=== PATIENT | male | born 1935 | race Caucasian/White ===

== ENCOUNTER 2019-09-24 13:06 | Outpatient (CLI) | payer MEDICARE, SELFPAY ==
[2019-09-24 13:53] LABS: Basophils # 0.1 10^3/uL (0.0-0.1); Basophils % 1.3 %; Eosinophils # 0.3 10^3/uL (0.0-0.8); Eosinophils % 4.4 %; Hematocrit 38.1 % (42.0-52.0); Hemoglobin 12.8 g/dL (11.7-16.6); Lymphocytes # 1.3 10^3/uL (0.8-4.8); Lymphocytes % 18.7 %; Mean Corpuscular HGB Conc 33.6 g/dL (30.0-36.0); Mean Corpuscular Hemoglobin 31.6 pg (28.0-34.0); Mean Corpuscular Volume 94.1 fL (80-94); Mean Platelet Volume 11.5 fL (7.4-10.4); Monocytes # 0.9 10^3/uL (0.2-0.9); Monocytes % 13.3 %; Neutrophils # 4.3 10^3/uL (1.8-7.7); Nucleated Red Blood Cells % 0 %; Platelet Count 154 10^3/cmm (130-400); Red Blood Count 4.05 10^6/uL (4.1-5.3); Red Cell Distribution Width 12.2 % (12.1-15.1); White Blood Count 6.9 10^3/uL (4.0-10.0)
[2019-09-24 13:58] LABS: Alanine Aminotransferase 18 U/L (0-41); Albumin Level 4.1 g/dL (3.5-5.2); Alkaline Phosphatase 55 IU/L (40-130); Anion Gap 13.4 (5-19); Aspartate Amino Transferase 23 U/L (0-40); Blood Urea Nitrogen 13 mg/dL (8-23); Carbon Dioxide 27 mmol/L (22-29); Chloride 101 mmol/L (98-107); Globulin 2.4 g/dL (1.3-4.6); Glucose 153 mg/dL (65-115); Osmolality Calculated 283 mOsm/kg (285-295); Potassium 4.4 mmol/L (3.5-5.1); Sodium 137 mmol/L (136-145); Total Bilirubin 0.5 mg/dL (0.15-1.2); Total Protein 6.5 g/dL (6.6-8.7)
[2019-09-24 17:47] LABS: Estmated Average Glucose 151; Hemoglobin A1C 6.9 % (4.0-6.0)
[2019-09-24 20:32] LABS: Carcinoembryonic Antigen 1.6 ng/mL (0.0-4.7)
--- NOTE | 2019-09-27 21:14 | ONC FU_ITS ---
Dr. Gray Patient Follow-Up Note Patient: David Mcclure Unit #: [id number]: 1935 Dicatated By: Dc Gray M.D.Date of Visit:September 24, 2019 Onc Med Follow-up/Prog Note Chief Complaint: Rectal cancer. History of Present Illness: This is an 84 year-old man with locally advanced rectal cancer, post treatment stage IIA (ypT2, ypN0, M0). The cancer was initially diagnosed in February 2007. He was given preoperative chemoradiation followed by low anterior resection with ileostomy in October 2007. His management was complicated by the fact that he also had significant coronary artery disease and he did require coronary artery bypass surgery prior to his colon resection. Pathology from his resection did show residual tumor, which was a moderately differentiated adenocarcinoma measuring 2 x 1.5 cm. It was invading into but not through the muscularis propria. There was no involvement in 8 lymph nodes. His post-treatment stage was IIA (ypT2, ypN0, M0). He had very marginal performance status following the surgery, and I did not attempt postoperative adjuvant chemotherapy. During followup, he has had no documented recurrence of his rectal cancer. He did attempt takedown of his ileostomy with reanastomosis of his colon, but he had very poor function and he ultimately did opt to have the ostomy replaced. His medical illnesses include hypertension, hyperlipidemia, type 2 diabetes, chronic kidney disease, coronary artery disease, COPD, and GERD. He is known to have a 5 cm infrarenal abdominal aortic aneurysm, and he has chronic back pain. In addition, he has a mild chronic anemia. He has a long history of smoking, in the range of 1 to 1 1/2 packs of cigarettes daily. He has had no interest in quitting. He is seen for a scheduled visit. He has been feeling pretty good generally. He does have limited activity tolerance, but he is able to do light work, and he has continued to live independently. ECOG score is 1. His appetite has been good. His weight fluctuates up and down. Overall it has remained stable. He has not had fever. He has a little sweating at night. He has shortness of breath, and he uses an inhaler as needed. He does not have much cough. He does not complain of chest pain. He sometimes has indigestion. His bowel movements are sometimes too frequent, but he does not have actual diarrhea. He has not been aware of any blood in the stool. He does have difficulty voiding, which he describes as trickle, trickle, trickle . He sometimes has urgency with urination. He has generalized aches and pains and he has chronic lower back pain. It is managed adequately with his medication. He has some difficulty with balance, which is not new. He has no focal neurologic symptoms. Medications: Aspirin 1 (81 mg) Tablet Oral daily, Carvedilol 1 (12.5 mg) Tablet Oral daily, Flomax 1 (0.4 mg) Capsule Oral daily, Morphine Sulfate 1 Tablet (of 30 mg) Oral 5x/d, Multivitamins 2 Tablet Oral daily, Simvastatin 1 Tablet (of 10 mg) Oral daily, Super B Complex Tablet Oral daily, TraZODone HCl 1 (50 mg) Tablet Oral at bedtime PRN, Vitamin D 1 Capsule Oral daily Allergies: PENICILLIN Review of Systems: Constitutional - His energy is okay. He does light work at home, and he continues to live independently. His appetite is okay. His weight fluctuates up and down. Overall it has remained stable. He has had no fever. He has a little sweating at night. ECOG score is 1, ENMT - No sinus congestion/drainage. No mouth sores. No sore throat or difficulty swallowing, Hematologic/Lymphatic - He bruises easily, Respiratory - He has shortness of breath. He uses an inhaler as needed. He does not have much cough. No pleuritic pain or hemoptysis. He is smoking around a pack a day, Cardiovascular - No angina pain. No palpitations, Gastrointestinal - No nausea or vomiting. He does have some indigestion. No constipation. He says his bowel movements are sometimes too frequent, but he does not have actual diarrhea. No blood in the stool or black stools, Genitourinary (M) - He describes his voiding as trickle, trickle, and trickle . He sometimes has urgency with urination, Musculoskeletal - He has generalized aches and pains, and he has chronic pain in his lower back, Integumentary - No skin complications, Neurologic - No headache. He has some difficulty with balance. No numbness/paresthesias or other focal neurologic symptoms, Psychiatric - No anxiety or depression. He sleeps well with Trazodone. Vital Signs: Performed on September 24, 2019 14:22 Height - 67.00 in Weight - 131.2 lbs (HIGH) BSA - 1.69 sq.m BMI - 20.55 Temperature - 99.0 F (HIGH) Pulse - 70 /min Respiration - 22 /min BP - 171/75 mm(hg) (HIGH) O2 Sat - 95 % (LOW) Pain - 0 Physical Examination: Constitutional - He looks pretty good generally, Eyes - Sclerae nonicteric. Conjunctivae clear, ENMT - No lesions noted in the oral cavity, Hematologic/Lymphatic - No cervical, clavicular, or axillary adenopathy, Respiratory - Lungs sound clear with diminished air movement bilaterally, Cardiovascular - Heart rhythm is regular. There is a II/ systolic murmur. There is no gallop or rub noted, Abdomen - Soft. He has a herbert-stomal hernia. Liver and spleen are not enlarged. There is no abdominal mass or ascites noted and there is no inguinal adenopathy, Extremities - Mild lower extremity edema, Neurologic - No focal neurologic deficits noted. Lab/Imaging: Test performed on September 24, 2019 13:20 Sodium 137 mmol/L Potassium 4.4 mmol/L Chloride 101 mmol/L CO2 27 mmol/L Anion Gap 13.4 BUN 13 mg/dL Creatinine 0.8 mg/dL Cr Clearance (Est) 59.93 mL/min Glucose 153 mg/dL Calcium 9.0 mg/dL Protein, Total 6.5 g/dL Albumin 4.1 g/dL Globulin 2.4 g/dL Bilirubin, Total 0.5 mg/dL ALT (SGPT) 18 U/L AST (SGOT) 23 U/L Alkaline Phosphatase 55 IU/L Hemoglobin A1C % 6.9 % WBC 6.9 10 3/uL RBC 4.05 10 6/uL HGB 12.8 g/dL HCT 38.1 % MCV 94.1 fL MCH 31.6 pg MCHC 33.6 g/dL RDW 12.2 % Platelet Count 154 10 3/cmm MPV 11.5 fL Neutrophils 4.3 10 3/uL Lymphocytes 1.3 10 3/uL Monocytes 0.9 10 3/uL Eosinophils 0.3 10 3/uL Basophils 0.1 10 3/uL Neutrophil % 62.0 % Lymphocyte % 18.7 % Monocyte % 13.3 % Eosinophil % 4.4 % Basophils % 1.3 % CEA 1.6 ng/mL Impression: 1. Patient with locally advanced adenocarcinoma of the rectum. He underwent neoadjuvant chemoradiation followed by low anterior resection in October 2007. His posttreatment staging was ypT2, ypN0. I did not attempt any postoperative adjuvant chemotherapy, as his performance status at that point was very marginal. 2. He had initially undergone a bowel reanastomosis, but he later opted to have the ostomy replaced due to poor bowel control. He has remained on observation/expectant management for the rectal cancer. His other medical illnesses include: 3. Hypertension. 4. Hyperlipidemia. 5. Type II diabetes. 6. Coronary artery disease. 7. COPD. 8. He has a known infrarenal abdominal aortic aneurysm. 9. He has chronic back pain. 10. He has chronic pain in the lower extremities which appears to be consistent with peripheral neuropathy. 11. He has nicotine dependence (cigarettes). During follow-up he has had ongoing problems with his chronic back pain, but it has been managed adequately on a stable dosage of immediate release morphine. He had been losing weight, but that had subsequently stabilized. Overall, he has remained stable clinically with no evidence of recurrence of the rectal cancer. Plan: He remains on observation/expectant management for the rectal cancer. His medications will remain the same. I will see him again in 6 months, or sooner as needed. Signed By: Dc Gray M.D. <<Signature on File>>
== END 2019-09-24 13:07 | disposition home or self-care (01) ==
LOC: ONCMED 13:10
PROVIDERS: PCP Internal Medicine; Visit Provider Internal Medicine Medical Oncology
DX: Z08 Encounter for follow-up examination after completed treatment for malignant neoplasm (principal); Z85.048 Personal history of other malignant neoplasm of rectum, rectosigmoid junction, and anus; I10 Essential (primary) hypertension; E78.5 Hyperlipidemia, unspecified; E11.9 Type 2 diabetes mellitus without complications; I25.10 Atherosclerotic heart disease of native coronary artery without angina pectoris; J44.9 Chronic obstructive pulmonary disease, unspecified; G89.29 Other chronic pain; M79.605 Pain in left leg; M79.604 Pain in right leg; M54.9 Dorsalgia, unspecified; F17.210 Nicotine dependence, cigarettes, uncomplicated; Z79.891 Long term (current) use of opiate analgesic; Z90.49 Acquired absence of other specified parts of digestive tract
CPT/HCPCS: 36415; 80053; 82378; 83036; 85025; G0463

== ENCOUNTER 2019-12-26 10:28 | Emergency (ER) | payer MEDICARE, SELFPAY ==
[2019-12-26 10:36] VITALS: BP 138/109; PULSE 70; RESP 16; TEMP 36.3; O2SAT 91; BMI 20.3
[2019-12-26 11:26] VITALS: PULSE 62; O2SAT 93
--- NOTE | 2019-12-26 11:30 | USCV_ITS ---
Ren David Age: 84 Gender: M : 1935 Exam Date: 12/26/2019 12:26 Ordering Phys: Young Mckeon DO Technologist: Aleta Vines [place] [facility] [place]: Swelling HISTORY: Right lower extremity swelling. PROCEDURES: Comparison: 12-06-11. Venous duplex imaging was performed in only the right lower extremity. The following venous structures were evaluated: common femoral vein, profunda vein, proximal portion of the greater saphenous vein, superficial femoral vein, and the popliteal vein. In addition, the posterior tibial and peroneal trunk were evaluated. Serial compression, augmentation maneuvers, and spectral Doppler flow evaluation were performed. FINDINGS: No evidence of DVT seen in any vessel visualized at this time. Calf edema noted. CONCLUSIONS No DVT right lower extremity. Nonspecific subcutaneous edema seen in the lower leg as well as varicose veins demonstrated behind the knee. Charlie Tinsley (Electronically Signed) Final Date: 26 December 2019 13:22 S
--- NOTE | 2019-12-26 11:32 | ED_ITS ---
HPI - Extremity Problem General: Chief complaint: Extremity Problem,Nontraumatic Stated complaint: swelling/rash right leg Time Seen by Provider: 12/26/19 11:11 History of Present Illness: HPI Narrative: 84-year-old male comes in complaining of right lower leg edema and swelling for the last 10 days occasionally has had some drainage from it is painful to the touch he is not had any popliteal or inguinal lymphadenopathy on that side. He is not had any fever sweats or chills denies any chest pain or shortness of breath. MD Complaint: extremity pain and extremity swelling Onset (ago): day(s) (10) Pain Consistency: constant Location: right and lower extremity Quality: aching Radiation: none Relieving factors: immobilization, elevation and rest Associated symptoms: Reports myalgias and short of breath; Deny arthralgias, chest pain, fever(s) or rash Context: immobilization, recent surgery/procedure and history of DVT Review of Systems Const: Denies: fever(s) ENMT: Denies: throat pain, ear or mastoid pain, nasal discharge or nasal congestion Card: Denies: chest pain Resp: Denies: dyspnea, productive cough or non-productive cough GI: Denies: abdominal pain, nausea, vomiting, hematemesis, coffee ground emesis, diarrhea, constipation, bloating, hematochezia or melena : Denies: flank pain, dysuria, urinary frequency or urinary urgency Skin/Breast: Denies: rash or pruritus PFSH ED PFSH: Medical History (Updated 12/26/19 @ 13:04 by Young Mckeon DO) Colon cancer Colostomy in place Coronary artery disease Coronary atherosclerosis of bypass graft Surgical History (Updated 12/26/19 @ 11:53 by Young Mckeon DO) History of colon resection Social History (Updated 12/26/19 @ 10:41 by Jorge Carrera RN) Smoking and tobacco status: heavy tobacco smoker Alcohol intake: never Substance/Drug Use: never Physical Exam Const: COMMON NORMALS: no acute distress GENERAL APPEARANCE: cooperative and comfortable ORIENTATION/CONSCIOUSNESS: Yes awake, Yes oriented to person, Yes oriented to place and Yes oriented to time HENMT: COMMON NORMALS: normocephalic and atraumatic HEAD & SCALP: normocephalic and atraumatic Eye: COMMON NORMALS: Equal, round and reactive pupils present, EOMs intact bilaterally, conjunctivae normal and no scleral icterus CONJUNCTIVA: Yes conjunctivae normal PUPIL: Yes Equal, round and reactive pupils present Neck/C-Spine: COMMON NORMALS: full ROM, no lymphadenopathy, supple and no JVD Lymph: LYMPHATIC: no lymphadenopathy noted and no lymphedema noted Resp: COMMON NORMALS: normal respiratory effort, No retractions, No use of accessory muscles and clear to auscultation bilaterally AUSCULTATION: clear to auscultation bilaterally Cardio: COMMON NORMALS: no JVD, regular rate, regular rhythm and No murmurs present (Cardio) RATE: regular rate RHYTHM: regular rhythm GI: COMMON NORMALS: Soft to palpation and No hepatosplenomegaly present AUSCULTATION: Yes normoactive bowel sounds PALPATION: Yes Soft to palpation, No Tenderness to palpation present (GI), No Guarding due to palpation present ( GI) and Yes No hepatosplenomegaly present OTHER: Colostomy in place in the left lower quadrant no signs of infection Extremity: NARRATIVE EXTREMITY EXAM: Right lower extremity mildly swollen with some venous stasis skin breakdown there is some serous drainage erythematous and tender to the touch Neuro: SENSORIUM/ORIENTATION: Yes oriented to person, Yes oriented to place and Yes oriented to time Skin: COMMON NORMALS: no rashes or lesions noted GENERAL SKIN EXAM: no rashes or lesions noted Course Vital Signs: Vital signs: Vital Signs Temperature 97.3 F L 12/26/19 10:36 Pulse Rate 62 12/26/19 14:06 Respiratory Rate 18 12/26/19 14:06 Blood Pressure 169/82 12/26/19 14:06 Pulse Oximetry 93 12/26/19 14:06 MDM - Extremity (Nontraumatic) MDM Narrative: Medical decision making narrative: Redress wound. We will send her him home with Bactrim DS 1 p.o. twice daily. Only gave him enough for 5 days by that time he needs to see his regular doctor back again and needs to have his kidney function rechecked and have the leg reevaluated if he has worsening symptoms he needs to return to the emergency room Lab Data: Labs: Lab Results 12/26/19 12/26/19 Range/Units 11:40 11:40 WBC 6.5 (4.0-10.0) 10^3/ uL RBC 4.05 L (4.1-5.3) 10^6/u L Hgb 12.4 (11.7-16.6) g/dL Hct 38.0 L (42.0-52.0) % MCV 93.8 (80-94) fL MCH 30.6 (28.0-34.0) pg MCHC 32.6 (30.0-36.0) g/dL RDW 11.9 L (12.1-15.1) % Plt Count 185 (130-400) 10^3/c mm MPV 11.0 H (7.4-10.4) fL Neut % (Auto) 69.0 % Lymph % (Auto) 15.1 % Rich % (Auto) 10.3 % Eos % (Auto) 4.5 % Baso % (Auto) 0.8 % Neut # (Auto) 4.50 (1.8-7.7) 10^3/u L Lymph # (Auto) 1.0 (0.8-4.8) 10^3/u L Rich # (Auto) 0.7 (0.2-0.9) 10^3/u L Eos # (Auto) 0.3 (0.0-0.8) 10^3/u L Baso # (Auto) 0.1 (0.0-0.1) 10^3/u L Nucleated RBC % (a uto) 0 % Nucleated RBCs # 0.0 /100WBC Sodium 139 (136-145) mmol/L Potassium 4.4 (3.5-5.1) mmol/L Chloride 105 (98-107) mmol/L Carbon Dioxide 28 (22-29) mmol/L Anion Gap 10.4 (5-19) BUN 10 (8-23) mg/dL Creatinine 0.7 (0.7-1.2) mg/dL GFR Calculation Not Reportable Glucose 144 H (65-115) mg/dL Calculated Osmolal ity 287 (285-295) mOsm/k g Calcium 8.8 (8.5-10.5) mg/dL Total Bilirubin 0.5 (0.15-1.2) mg/dL AST 25 (0-40) U/L ALT 13 (0-41) U/L Alkaline Phosphata se 61 (40-130) IU/L Total Protein 6.2 L (6.6-8.7) g/dL Albumin 3.6 (3.5-5.2) g/dL Globulin 2.6 (1.3-4.6) g/dL Discharge Plan Discharge Patient Disposition: Home Clinical Impression: Cellulitis Condition: Stable Prescriptions: New Bactrim DS 800-160 mg tablet 1 tab PO BID 5 Days Qty: 10 RF: 0 No Action carvedilol 6.25 mg tablet 6.25 mg PO .2 TABS AM, 1 TAB PM Qty: 90 RF: 5 simvastatin 10 mg tablet 10 mg PO DAILY 90 Days Qty: 90 RF: 3 Discharge Orders: Discharge Order (Routine); Ordered 12/26/19 Ordered By: Young Mckeon Referrals: Dc White DO [Primary Care Provider] - Discharge Diet: Usual diet Discharge Activity: Limit activity as instructed Activity Restrictions/Additional Instructions: Follow-up with your primary care doctor within 5 days to reevaluate the need for further antibiotics and to recheck your kidney function. If you worsen prior to then return to the emergency room. 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
[2019-12-26 11:56] LABS: Basophils # 0.1 10^3/uL (0.0-0.1); Basophils % 0.8 %; Eosinophils # 0.3 10^3/uL (0.0-0.8); Eosinophils % 4.5 %; Hemoglobin 12.4 g/dL (11.7-16.6); Lymphocytes % 15.1 %; Mean Corpuscular HGB Conc 32.6 g/dL (30.0-36.0); Mean Corpuscular Hemoglobin 30.6 pg (28.0-34.0); Mean Corpuscular Volume 93.8 fL (80-94); Monocytes # 0.7 10^3/uL (0.2-0.9); Monocytes % 10.3 %; Nucleated Red Blood Cells % 0 %; Platelet Count 185 10^3/cmm (130-400); Red Blood Count 4.05 10^6/uL (4.1-5.3); Red Cell Distribution Width 11.9 % (12.1-15.1); White Blood Count 6.5 10^3/uL (4.0-10.0)
[2019-12-26 12:13] LABS: Alanine Aminotransferase 13 U/L (0-41); Albumin Level 3.6 g/dL (3.5-5.2); Alkaline Phosphatase 61 IU/L (40-130); Anion Gap 10.4 (5-19); Aspartate Amino Transferase 25 U/L (0-40); Blood Urea Nitrogen 10 mg/dL (8-23); Calcium 8.8 mg/dL (8.5-10.5); Carbon Dioxide 28 mmol/L (22-29); Chloride 105 mmol/L (98-107); Globulin 2.6 g/dL (1.3-4.6); Glucose 144 mg/dL (65-115); Osmolality Calculated 287 mOsm/kg (285-295); Potassium 4.4 mmol/L (3.5-5.1); Sodium 139 mmol/L (136-145); Total Bilirubin 0.5 mg/dL (0.15-1.2); Total Protein 6.2 g/dL (6.6-8.7)
[2019-12-26 14:06] VITALS: BP 169/82; PULSE 62; RESP 18; O2SAT 93
== END 2019-12-26 14:01 | disposition home or self-care (01) ==
PROVIDERS: Emergency Provider Family Medicine; PCP Internal Medicine
DX: L03.115 Cellulitis of right lower limb (principal); Z85.038 Personal history of other malignant neoplasm of large intestine; I25.10 Atherosclerotic heart disease of native coronary artery without angina pectoris; F17.210 Nicotine dependence, cigarettes, uncomplicated; M79.89 Other specified soft tissue disorders
CPT/HCPCS: 12345; 36415; 80053; 85025; 87040; 93971; 99281; 99283

== ENCOUNTER 2020-04-12 12:52 | Outpatient (CLI) | payer MEDICARE, SELFPAY ==
[2020-04-12 13:37] LABS: Basophils # 0.1 10^3/uL (0.0-0.1); Basophils % 1.3 %; Eosinophils # 0.3 10^3/uL (0.0-0.8); Eosinophils % 4.4 %; Hematocrit 35.9 % (42.0-52.0); Lymphocytes # 1.5 10^3/uL (0.8-4.8); Lymphocytes % 22.4 %; Mean Corpuscular HGB Conc 33.4 g/dL (30.0-36.0); Mean Corpuscular Hemoglobin 30.8 pg (28.0-34.0); Mean Corpuscular Volume 92.1 fL (80-94); Monocytes # 0.7 10^3/uL (0.2-0.9); Monocytes % 10.9 %; Neutrophils # 4.14 10^3/uL (1.8-7.7); Neutrophils % 60.9 %; Nucleated Red Blood Cells % 0 %; Platelet Count 199 10^3/cmm (130-400); Red Cell Distribution Width 11.9 % (12.1-15.1); White Blood Count 6.8 10^3/uL (4.0-10.0)
[2020-04-12 13:49] LABS: Estmated Average Glucose 123; Hemoglobin A1C 5.9 % (4.0-6.0)
[2020-04-12 14:35] LABS: Carcinoembryonic Antigen 1.7 ng/mL (0.0-4.7)
[2020-04-12 14:47] LABS: Alanine Aminotransferase 17 U/L (0-41); Albumin Level 3.6 g/dL (3.5-5.2); Alkaline Phosphatase 61 IU/L (40-130); Anion Gap 10.5 (5-19); Aspartate Amino Transferase 22 U/L (0-40); Blood Urea Nitrogen 10 mg/dL (8-23); Calcium 8.9 mg/dL (8.5-10.5); Carbon Dioxide 29 mmol/L (22-29); Chloride 104 mmol/L (98-107); Globulin 2.7 g/dL (1.3-4.6); Glucose 150 mg/dL (65-115); Osmolality Calculated 290 mOsm/kg (285-295); Potassium 4.5 mmol/L (3.5-5.1); Sodium 139 mmol/L (136-145); Total Bilirubin 0.3 mg/dL (0.15-1.2); Total Protein 6.3 g/dL (6.6-8.7)
--- NOTE | 2020-04-15 14:57 | ONC FU_ITS ---
Dr. Gray Patient Follow-Up Note Patient: David Mcclure Unit #: [id number]: 1935 Dicatated By: Dc Gray M.D.Date of Visit:Apr 12, 2020 Onc Med Follow-up/Prog Note Chief Complaint: Rectal cancer. History of Present Illness: This is an 84 year-old man with locally advanced rectal cancer, post treatment stage IIA (ypT2, ypN0, M0). The cancer was initially diagnosed in February 2007. He was given preoperative chemoradiation followed by low anterior resection with ileostomy in October 2007. His management was complicated by the fact that he also had significant coronary artery disease and he did require coronary artery bypass surgery prior to his colon resection. Pathology from his resection did show residual tumor, which was a moderately differentiated adenocarcinoma measuring 2 x 1.5 cm. It was invading into but not through the muscularis propria. There was no involvement in 8 lymph nodes. His post-treatment stage was IIA (ypT2, ypN0, M0). He had very marginal performance status following the surgery, and I did not attempt postoperative adjuvant chemotherapy. During followup, he has had no documented recurrence of his rectal cancer. He did attempt takedown of his ileostomy with reanastomosis of his colon, but he had very poor function and he ultimately did opt to have the ostomy replaced. His medical illnesses include hypertension, hyperlipidemia, type 2 diabetes, chronic kidney disease, coronary artery disease, COPD, and GERD. He is known to have a 5 cm infrarenal abdominal aortic aneurysm, and he has chronic back pain. In addition, he has a mild chronic anemia. He has a long history of smoking, in the range of 1 to 1 1/2 packs of cigarettes daily. He has had no interest in quitting. He is seen for a scheduled visit. He has been feeling pretty good, though he does get tired pretty easily. He is able to do light work. Appetite is fair. His weight is stable. He has not had fever. He occasionally has sweating at night. In December he was treated in the emergency room for cellulitis of the right leg. He had subsequently developed some skin ulcerations, but those are getting better. He has some shortness of breath, but his breathing is generally okay. He does not complain of cough. He is still smoking a pack of cigarettes daily. He has not had chest pain. He has no GI/ complaints other than frequent urination. He is having back pain and he also complains that his legs ache. His pain is adequately managed with his medication, at least to the point that he is functional. Lately has had some headaches and he also complains of having some dizziness. He has no focal neurologic symptoms. Medications: Aspirin 1 (81 mg) Tablet Oral daily, Carvedilol 1 (12.5 mg) Tablet Oral daily, Flomax 1 (0.4 mg) Capsule Oral daily, Gabapentin 1 Capsule (of 100 mg) Oral b.i.d., Morphine Sulfate 1 Tablet (of 30 mg) Oral 5x/d, Multivitamins 2 Tablet Oral daily, Simvastatin 1 Tablet (of 10 mg) Oral daily, Super B Complex Tablet Oral daily, TraZODone HCl 1 (50 mg) Tablet Oral at bedtime PRN, Vitamin D 1 Capsule Oral daily Allergies: PENICILLIN Review of Systems: Constitutional - He tires very easily, but he is able to do light work. Appetite is fair. His weight is stable. He has not had fever. He occasionally has night sweating. ECOG score is 1, ENMT - He has a little bit of sinus drainage. No mouth sores. No sore throat or difficulty swallowing, Hematologic/Lymphatic - No abnormal bruising or bleeding, Respiratory - He has some shortness of breath, but his breathing is generally okay. He does not have cough. He is still smoking 1 pack of cigarettes daily. No pleuritic pain or hemoptysis, Cardiovascular - No angina pain. No palpitations, Gastrointestinal - No nausea or vomiting. No heartburn or acid reflux. No diarrhea or constipation. No blood in the stool or black stools, Genitourinary (M) - No dysuria or hematuria. He has urinary frequency. No urgency or incontinence, Musculoskeletal - He has chronic pain in his back and lower extremities. It is managed adequately with his pain medication, at least to the point that he is functional, Integumentary - Had developed some skin ulcerations on his right leg, but they are getting better, Neurologic - Lately has had some headaches and he also has some dizziness. No numbness or tingling. No other focal neurologic symptoms, Psychiatric - No anxiety or depression. No insomnia. Vital Signs: Performed on Apr 12, 2020 14:36 Height - 67.00 in Weight - 133.2 lbs (HIGH) BSA - 1.70 sq.m BMI - 20.86 Temperature - 98.5 F Pulse - 63 /min Respiration - 24 /min BP - 160/77 mm(hg) (HIGH) O2 Sat - 98 % Pain - 5 Physical Examination: Constitutional - He looks pretty good generally, Eyes - Sclerae nonicteric. Conjunctivae clear, ENMT - No lesions noted in the oral cavity, Hematologic/Lymphatic - No cervical, clavicular, or axillary adenopathy, Respiratory - Lungs sound clear with diminished air movement bilaterally, Cardiovascular - Heart rhythm is regular. There is a II/ systolic murmur. There is no gallop or rub noted, Abdomen - Soft. He has a herbert-stomal hernia. Liver and spleen are not enlarged. There is no abdominal mass or ascites noted and there is no inguinal adenopathy, Extremities - There are venous stasis changes and there is mild lower extremity edema, Neurologic - No focal neurologic deficits noted. Lab/Imaging: Test performed on Apr 12, 2020 13:19 Sodium 139 mmol/L Potassium 4.5 mmol/L Chloride 104 mmol/L Est Avg Glucose (eAG) 123 mg/dL CO2 29 mmol/L Anion Gap 10.5 BUN 10 mg/dL Creatinine 0.8 mg/dL Cr Clearance (Est) 60.8400 mL/min Glucose 150 mg/dL Osmolality - Calculated 290 mOsm/kg Calcium 8.9 mg/dL Protein, Total 6.3 g/dL Albumin 3.6 g/dL Globulin 2.7 g/dL Bilirubin, Total 0.3 mg/dL ALT (SGPT) 17 U/L AST (SGOT) 22 U/L Alkaline Phosphatase 61 IU/L Hemoglobin A1C % 5.9 % WBC 6.8 10 3/uL RBC 3.90 10 6/uL HGB 12.0 g/dL HCT 35.9 % MCV 92.1 fL MCH 30.8 pg MCHC 33.4 g/dL RDW 11.9 % Platelet Count 199 10 3/cmm MPV 11.0 fL Neutrophils 4.14 10 3/uL Lymphocytes 1.5 10 3/uL Monocytes 0.7 10 3/uL Eosinophils 0.3 10 3/uL Basophils 0.1 10 3/uL Neutrophil % 60.9 % Lymphocyte % 22.4 % Monocyte % 10.9 % Eosinophil % 4.4 % Basophils % 1.3 % NRBC % 0 % CEA 1.7 ng/mL Impression: 1. Patient with locally advanced adenocarcinoma of the rectum. He underwent neoadjuvant chemoradiation followed by low anterior resection in October 2007. His posttreatment staging was ypT2, ypN0. I did not attempt any postoperative adjuvant chemotherapy, as his performance status at that point was very marginal. 2. He had initially undergone a bowel reanastomosis, but he later opted to have the ostomy replaced due to poor bowel control. He has remained on observation/expectant management for the rectal cancer. His other medical illnesses include: 3. Hypertension. 4. Hyperlipidemia. 5. Type II diabetes. 6. Coronary artery disease. 7. COPD. 8. He has a known infrarenal abdominal aortic aneurysm. 9. He has chronic back pain. 10. He has chronic pain in the lower extremities which appears to be consistent with peripheral neuropathy. 11. He has nicotine dependence (cigarettes). During follow-up he has had ongoing problems with his chronic back pain, but it has been managed adequately on a stable dosage of immediate release morphine. He had been losing weight, but that eventually stabilized. Overall, he has remained stable clinically with no evidence of recurrence of the rectal cancer. Plan: He remains on observation/expectant management for the rectal cancer. His medications will remain the same. I will see him again in 6 months. Signed By: Dc Gray M.D. <<Signature on File>>
== END 2020-04-12 12:53 | disposition home or self-care (01) ==
LOC: ONCMED 12:54
PROVIDERS: PCP Nurse Practitioner; Visit Provider Internal Medicine Medical Oncology
DX: Z08 Encounter for follow-up examination after completed treatment for malignant neoplasm (principal); Z85.048 Personal history of other malignant neoplasm of rectum, rectosigmoid junction, and anus; I10 Essential (primary) hypertension; E78.5 Hyperlipidemia, unspecified; E11.59 Type 2 diabetes mellitus with other circulatory complications; I25.10 Atherosclerotic heart disease of native coronary artery without angina pectoris; J44.9 Chronic obstructive pulmonary disease, unspecified; I71.4 Abdominal aortic aneurysm, without rupture; G89.29 Other chronic pain; M54.9 Dorsalgia, unspecified; E11.42 Type 2 diabetes mellitus with diabetic polyneuropathy; F17.210 Nicotine dependence, cigarettes, uncomplicated; Z79.899 Other long term (current) drug therapy; Z90.49 Acquired absence of other specified parts of digestive tract; Z92.21 Personal history of antineoplastic chemotherapy; Z92.3 Personal history of irradiation
CPT/HCPCS: 36415; 80053; 82378; 83036; 85025; G0463

== ENCOUNTER 2020-09-07 08:19 | Outpatient (CLI) | payer MEDICARE, SELFPAY | END 2020-09-07 08:20 | disposition home or self-care (01) | LOC: WOUND 08:20 | PROVIDERS: PCP Nurse Practitioner; Visit Provider Thoracic Surgery (Cardiothoracic Vascular Surgery) | DX: L97.822 Non-pressure chronic ulcer of other part of left lower leg with fat layer exposed (principal) | CPT/HCPCS: G0463 ==

== ENCOUNTER 2020-09-09 11:03 | Outpatient (CLI) | payer MEDICARE, SELFPAY | END 2020-09-09 11:04 | disposition home or self-care (01) | LOC: WOUND 11:07 | PROVIDERS: PCP Nurse Practitioner; Visit Provider Surgery | DX: Z51.89 Encounter for other specified aftercare (principal) | CPT/HCPCS: 29581 ==

== ENCOUNTER 2020-09-14 10:55 | Outpatient (CLI) | payer MEDICARE, SELFPAY | END 2020-09-14 10:56 | disposition home or self-care (01) | LOC: WOUND 10:57 | PROVIDERS: PCP Nurse Practitioner; Visit Provider Thoracic Surgery (Cardiothoracic Vascular Surgery) | DX: I87.2 Venous insufficiency (chronic) (peripheral) (principal); L97.822 Non-pressure chronic ulcer of other part of left lower leg with fat layer exposed | CPT/HCPCS: G0463 ==

== ENCOUNTER 2020-09-16 14:00 | Outpatient (CLI) | payer MEDICARE, SELFPAY | END 2020-09-16 14:01 | disposition home or self-care (01) | LOC: WOUND 14:01 | PROVIDERS: PCP Nurse Practitioner; Visit Provider Nurse Practitioner Family | DX: L97.829 Non-pressure chronic ulcer of other part of left lower leg with unspecified severity (principal) | CPT/HCPCS: 29581 ==

== ENCOUNTER 2020-09-21 13:03 | Outpatient (CLI) | payer MEDICARE, SELFPAY | END 2020-09-21 13:04 | disposition home or self-care (01) | LOC: WOUND 13:04 | PROVIDERS: PCP Nurse Practitioner; Visit Provider Thoracic Surgery (Cardiothoracic Vascular Surgery) | DX: I87.2 Venous insufficiency (chronic) (peripheral) (principal); L97.822 Non-pressure chronic ulcer of other part of left lower leg with fat layer exposed | CPT/HCPCS: 97597; 97598 ==

== ENCOUNTER 2020-09-23 10:51 | Outpatient (CLI) | payer MEDICARE, SELFPAY | END 2020-09-23 10:52 | disposition home or self-care (01) | LOC: WOUND 10:53 | PROVIDERS: PCP Nurse Practitioner; Visit Provider Thoracic Surgery (Cardiothoracic Vascular Surgery) | DX: L97.829 Non-pressure chronic ulcer of other part of left lower leg with unspecified severity (principal) | CPT/HCPCS: 29581 ==

== ENCOUNTER 2020-09-28 10:45 | Outpatient (CLI) | payer MEDICARE, SELFPAY | END 2020-09-28 10:46 | disposition home or self-care (01) | LOC: WOUND 10:46 | PROVIDERS: PCP Nurse Practitioner; Visit Provider Thoracic Surgery (Cardiothoracic Vascular Surgery) | DX: I87.2 Venous insufficiency (chronic) (peripheral) (principal); L97.822 Non-pressure chronic ulcer of other part of left lower leg with fat layer exposed | CPT/HCPCS: 97597; 97598 ==

== ENCOUNTER 2020-10-05 10:49 | Outpatient (CLI) | payer MEDICARE, SELFPAY | END 2020-10-05 10:50 | disposition home or self-care (01) | LOC: WOUND 10:50 | PROVIDERS: PCP Nurse Practitioner; Visit Provider Thoracic Surgery (Cardiothoracic Vascular Surgery) | DX: I87.2 Venous insufficiency (chronic) (peripheral) (principal); L97.822 Non-pressure chronic ulcer of other part of left lower leg with fat layer exposed | CPT/HCPCS: 29581 ==

== ENCOUNTER 2020-10-11 12:27 | Outpatient (CLI) | payer MEDICARE, SELFPAY ==
[2020-10-11 13:17] LABS: Basophils # 0.1 10^3/uL (0.0-0.1); Basophils % 0.6 %; Eosinophils # 0.8 10^3/uL (0.0-0.8); Eosinophils % 8.7 %; Hemoglobin 12.2 g/dL (11.7-16.6); Lymphocytes % 10.7 %; Mean Corpuscular Hemoglobin 31.1 pg (28.0-34.0); Mean Corpuscular Volume 94.4 fL (80-94); Mean Platelet Volume 11.4 fL (7.4-10.4); Monocytes # 0.8 10^3/uL (0.2-0.9); Monocytes % 8.3 %; Neutrophils % 68.8 %; Nucleated Red Blood Cells % 0 %; Platelet Count 181 10^3/cmm (130-400); Red Blood Count 3.92 10^6/uL (4.1-5.3); Red Cell Distribution Width 12.5 % (12.1-15.1); White Blood Count 9.3 10^3/uL (4.0-10.0)
[2020-10-11 13:41] LABS: Alanine Aminotransferase 11 U/L (0-41); Albumin Level 3.8 g/dL (3.5-5.2); Alkaline Phosphatase 57 IU/L (40-130); Anion Gap 12.5 (5-19); Aspartate Amino Transferase 18 U/L (0-40); Blood Urea Nitrogen 13 mg/dL (8-23); Calcium 8.3 mg/dL (8.5-10.5); Carbon Dioxide 26 mmol/L (22-29); Chloride 104 mmol/L (98-107); Globulin 2.2 g/dL (1.3-4.6); Glucose 165 mg/dL (65-115); Osmolality Calculated 290 mOsm/kg (285-295); Potassium 4.5 mmol/L (3.5-5.1); Sodium 138 mmol/L (136-145); Total Bilirubin 0.3 mg/dL (0.15-1.2)
--- NOTE | 2020-10-12 07:13 | ONC FU_ITS ---
Dr. Gray Patient Follow-Up Note Patient: David Mcclure Unit #: [id number]: 1935 Dicatated By: Dc Gray M.D.Date of Visit:Oct 11, 2020 Onc Med Follow-up/Prog Note Chief Complaint: Rectal cancer. History of Present Illness: This is an 85 year-old man with locally advanced rectal cancer, post treatment stage IIA (ypT2, ypN0, M0). The cancer was initially diagnosed in February 2007. He was given preoperative chemoradiation followed by low anterior resection with ileostomy in October 2007. His management was complicated by the fact that he also had significant coronary artery disease and he did require coronary artery bypass surgery prior to his colon resection. Pathology from his resection did show residual tumor, which was a moderately differentiated adenocarcinoma measuring 2 x 1.5 cm. It was invading into but not through the muscularis propria. There was no involvement in 8 lymph nodes. His post-treatment stage was IIA (ypT2, ypN0, M0). He had very marginal performance status following the surgery, and I did not attempt postoperative adjuvant chemotherapy. During followup, he has had no documented recurrence of his rectal cancer. He did attempt takedown of his ileostomy with reanastomosis of his colon, but he had very poor function and he ultimately did opt to have the ostomy replaced. His medical illnesses include hypertension, hyperlipidemia, type 2 diabetes, chronic kidney disease, coronary artery disease, COPD, and GERD. He is known to have a 5 cm infrarenal abdominal aortic aneurysm, and he has chronic back pain. In addition, he has a mild chronic anemia. He has a long history of smoking, in the range of 1 to 1 1/2 packs of cigarettes daily. He has had no interest in quitting. He is seen for a scheduled visit. He says he is feeling okay. He has been going to wound care for treatment of an ulceration on the lower left leg which developed following some minor trauma. He has somewhat limited activity, but he is able to do light work. ECOG score is one. He has good appetite. He has no fever or night sweats. He has some shortness of breath, but he says his breathing is not bad. He is still smoking 1 pack of cigarettes daily. He does not complain of cough, and he has not been having chest pain. He has no GI complaints. In particular, he has had no problems with his ostomy function. He has frequent urination. He has chronic pain, but it is managed adequately with his medication. He does not complain of headache or dizziness, and he has no focal neurologic symptoms. Medications: Aspirin 1 (81 mg) Tablet Oral daily, Carvedilol 1 (12.5 mg) Tablet Oral daily, Flomax 1 (0.4 mg) Capsule Oral daily, Gabapentin 1 Capsule (of 100 mg) Oral b.i.d., Morphine Sulfate 1 Tablet (of 30 mg) Oral 5x/d, Multivitamins 2 Tablet Oral daily, Simvastatin 1 Tablet (of 10 mg) Oral daily, Super B Complex Tablet Oral daily, TraZODone HCl 1 (50 mg) Tablet Oral at bedtime PRN, Vitamin D 1 Capsule Oral daily Allergies: PENICILLIN Vital Signs: Performed on Oct 11, 2020 15:46 Height - 67.00 in Weight - 133.6 lbs (HIGH) BSA - 1.70 sq.m BMI - 20.92 Temperature - 98.1 F (LOW) Pulse - 69 /min Respiration - 18 /min BP - 187/69 mm(hg) (HIGH) O2 Sat - 95 % (LOW) Pain - 0 Fatigue - 0 Physical Examination: Constitutional - He looks pretty good generally, Eyes - Sclerae nonicteric. Conjunctivae clear, ENMT - No lesions noted in the oral cavity, Hematologic/Lymphatic - No cervical, clavicular, or axillary adenopathy, Respiratory - Lungs sound clear with diminished air movement bilaterally, Cardiovascular - Heart rhythm is regular. There is a II/ systolic murmur. There is no gallop or rub noted, Abdomen - Soft. He has a herbert-stomal hernia. Liver and spleen are not enlarged. There is no abdominal mass or ascites noted and there is no inguinal adenopathy, Extremities - There are venous stasis changes and there is mild lower extremity edema. There is associated erythema of the left leg below the knee and there is an open skin ulceration on the lower left leg, Neurologic - No focal neurologic deficits noted. Lab/Imaging: Test performed on Oct 11, 2020 12:48 Sodium 138 mmol/L Potassium 4.5 mmol/L Chloride 104 mmol/L CO2 26 mmol/L Anion Gap 12.5 BUN 13 mg/dL Creatinine 0.7 mg/dL Cr Clearance (Est) 68.54 mL/min Glucose 165 mg/dL Osmolality - Calculated 290 mOsm/kg Calcium 8.3 mg/dL Protein, Total 6.0 g/dL Albumin 3.8 g/dL Globulin 2.2 g/dL Bilirubin, Total 0.3 mg/dL ALT (SGPT) 11 U/L AST (SGOT) 18 U/L Alkaline Phosphatase 57 IU/L WBC 9.3 10 3/uL RBC 3.92 10 6/uL HGB 12.2 g/dL HCT 37.0 % MCV 94.4 fL MCH 31.1 pg MCHC 33.0 g/dL RDW 12.5 % Platelet Count 181 10 3/cmm MPV 11.4 fL Neutrophils 6.40 10 3/uL Lymphocytes 1.0 10 3/uL Monocytes 0.8 10 3/uL Eosinophils 0.8 10 3/uL Basophils 0.1 10 3/uL Neutrophil % 68.8 % Lymphocyte % 10.7 % Monocyte % 8.3 % Eosinophil % 8.7 % Basophils % 0.6 % NRBC % 0 % Problem List: 1. Locally advanced adenocarcinoma of the rectum. He underwent neoadjuvant chemoradiation followed by low anterior resection in October 2007. His posttreatment staging was ypT2, ypN0. I did not attempt any postoperative adjuvant chemotherapy, as his performance status at that point was very marginal. 2. Hypertension. 3. Hyperlipidemia. 4. Type II diabetes. 5. Coronary artery disease. 6. COPD. 7. He has a known infrarenal abdominal aortic aneurysm. 8. He has chronic back pain. 9. He has chronic pain in the lower extremities which appears to be consistent with peripheral neuropathy. 10. He has nicotine dependence (cigarettes). Problems Addressed with this Encounter and Plan: 1. Patient with locally advanced adenocarcinoma of the rectum. He underwent neoadjuvant chemoradiation followed by low anterior resection in October 2007. His posttreatment staging was ypT2, ypN0. I did not attempt any postoperative adjuvant chemotherapy, as his performance status at that point was very marginal. He had initially undergone a bowel reanastomosis, but he later opted to have the ostomy replaced due to poor bowel control. He continued expectant management for the rectal cancer. During followup he has had limited activity tolerance and somewhat marginal performance status, but his overall clinical status appears stable with no evidence of recurrence of the rectal cancer. He remains on observation/expectant management. I will see him again in 6 months. 2. He has chronic back pain and he has chronic pain in the lower extremities which appears to be consistent with peripheral neuropathy. His pain has been managed very well with immediate release morphine, which he continues at the same dosage. Signed By: Dc Gray M.D. <<Signature on File>>
== END 2020-10-11 12:28 | disposition home or self-care (01) ==
LOC: ONCMED 12:32
PROVIDERS: PCP Nurse Practitioner; Visit Provider Internal Medicine Medical Oncology
DX: Z08 Encounter for follow-up examination after completed treatment for malignant neoplasm (principal); F17.210 Nicotine dependence, cigarettes, uncomplicated; Z85.048 Personal history of other malignant neoplasm of rectum, rectosigmoid junction, and anus; I10 Essential (primary) hypertension; E78.5 Hyperlipidemia, unspecified; E11.9 Type 2 diabetes mellitus without complications; I25.10 Atherosclerotic heart disease of native coronary artery without angina pectoris; J44.9 Chronic obstructive pulmonary disease, unspecified; G89.29 Other chronic pain; I71.4 Abdominal aortic aneurysm, without rupture; Z92.3 Personal history of irradiation; Z92.21 Personal history of antineoplastic chemotherapy; Z79.899 Other long term (current) drug therapy
CPT/HCPCS: 36415; 80053; 85025; 99214

== ENCOUNTER 2020-10-12 11:15 | Outpatient (CLI) | payer MEDICARE, SELFPAY | END 2020-10-12 11:16 | disposition home or self-care (01) | LOC: WOUND 11:21 | PROVIDERS: PCP Nurse Practitioner; Visit Provider Thoracic Surgery (Cardiothoracic Vascular Surgery) | DX: I87.2 Venous insufficiency (chronic) (peripheral) (principal); L97.822 Non-pressure chronic ulcer of other part of left lower leg with fat layer exposed | CPT/HCPCS: G0463 ==

== ENCOUNTER 2020-10-17 12:35 | Observation (INO) | payer MEDICARE, SELFPAY ==
[2020-10-17] VITALS (7 sets, daily range): BP systolic 136–166; BP diastolic 56–95; PULSE 73–120; RESP 16–20; TEMP 36.1; O2SAT 93–99; BMI 21.1
--- NOTE | 2020-10-17 13:17 | CT_ITS ---
WS: [id number] CT CERVICAL TRAUMA TECHNIQUE: Noncontrast CT of the cervical spine with coronal and sagittal reformatted images. CLINICAL INFORMATION: trauma COMPARISON: None. DLP: 346.[address] scans at [facility] use at least one of these dose optimization techniques: automat ed exposure control; mA and/or kV adjustment per patient size (includes targeted exams where dose is matched to clinical indication); or iterative reconstruction. FINDINGS: Exaggeration of the normal cervical lordosis. Mild spondylitic changes. Normal craniocervical junctio n. Normal C1-C2 articulation. Dens is normal in appearance. Normal occipital condyles. No high-grade spinal canal narrowing. Normal C1 ring. Mild chronic appearing biconcave compression deformity C7. No acute appearing fractures. Normal prevertebral soft tissues. Mastoids air cells are well aerated. CT/CT cervical spin wo con* [id number] IMPRESSION: No evidence of acute fracture or dislocation.
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
--- NOTE | 2020-10-17 13:18 | ECG_ITS ---
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 Measurements Intervals [place] Rate: 72 P: 70 SD: 135 QRS: -83 QRSD: 170 T: 67 QT: 417 QTc: 459 Interpretive Statements SINUS RHYTHM RIGHT BUNDLE BRANCH BLOCK [120+ ms QRS DURATION, UPRIGHT V1, 40+ ms S IN I/aVL/V4/V5/V6] LEFT ANTERIOR FASCICULAR BLOCK [QRS AXIS <= -45, QR IN I, RS IN II] No previous ECG available for comparison Electronically Signed On 10-17-2020 22:47:18 CDT by Margarette Earl M.D. [id number]
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
--- NOTE | 2020-10-17 13:36 | ED_ITS ---
HPI - Fall General: Chief Complaint: Fall Stated Complaint: FREQUENT FALLS Time Seen by Provider: 10/17/20 12:44 History of Present Illness: HPI Narrative: 85-year-old male who presents emergency room had 3 falls yesterday is complaining of neck pain fell once today states he fell off some stairs down a few feet he was able to get up and walk afterwards his only complaint is neck pain. There is no loss consciousness. He has some left elbow discomfort. He has a wrap on his right lower leg that has been being monitored by home health he goes to the wound clinic for that he is a chronic wound in the left lower leg that they have been dealing with. MD complaint: fall Onset (ago): hour(s) Fall from: standing and down stairs (#) (2-3) Fall witnessed: no Place fall occurred: home Loss of consciousness: None Prolonged down time: no Context: tripped/slipped Location of injury: neck Severity: moderate Quality: aching Associated symptoms-after fall: Reports neck pain; Denies abdominal pain, chest pain, confusion, difficulty walking, headache(s), hematuria, lightheadedness, numbness, short of breath, vertigo or weakness Review of Systems Const: Denies: fever(s), chills, body aches, change in appetite, fatigue or malaise ENMT: Denies: throat pain, ear or mastoid pain, nasal discharge or nasal congestion Card: Denies: chest pain or lightheadedness Resp: Denies: dyspnea, productive cough or non-productive cough GI: Denies: abdominal pain : Denies: hematuria Musc: Reports: neck pain Skin/Breast: Denies: rash or pruritus Neuro: Denies: headache(s), difficulty walking, vertigo or confusion PFSH ED PFSH: Medical History Colon cancer Colostomy in place Coronary artery disease Coronary atherosclerosis of bypass graft Essential hypertension PAD (peripheral artery disease) Venous insufficiency Surgical History History of colon resection S/P CABG (coronary artery bypass graft) (~2007) Family History Sister Diabetes Social History Smoking and tobacco status: current every day smoker cigarettes Packs smoked per day: 1 Alcohol intake: never Physical Exam Const: COMMON NORMALS: no acute distress GENERAL APPEARANCE: cooperative and comfortable ORIENTATION/CONSCIOUSNESS: Yes awake, Yes oriented to person, Yes oriented to place and Yes oriented to time HENMT: COMMON NORMALS: normocephalic, atraumatic, hearing grossly normal bilaterally and external ears normal HEAD & SCALP: normocephalic and atraumatic EXTERNAL EAR: Yes external ears normal Neck/C-Spine: COMMON NORMALS: no JVD Resp: COMMON NORMALS: normal respiratory effort, No retractions, No use of accessory muscles and clear to auscultation bilaterally AUSCULTATION: clear to auscultation bilaterally Cardio: COMMON NORMALS: no JVD, regular rate, regular rhythm and No murmurs present (Cardio) RATE: regular rate RHYTHM: regular rhythm GI: COMMON NORMALS: Soft to palpation and No hepatosplenomegaly present AUSCULTATION: Yes normoactive bowel sounds PALPATION: Yes Soft to palpation, No Tenderness to palpation present (GI), No Guarding due to palpation present (GI) and Yes No hepatosplenomegaly present Extremity: NARRATIVE EXTREMITY EXAM: Skin tear on the left elbow. Additionally there is significant denuding of the skin in the left lower leg is not red erythematous or indurated to suggest infection it is pretty significant amount of surface area. Neuro: SENSORIUM/ORIENTATION: Yes oriented to person, Yes oriented to place and Yes oriented to time Course Vital Signs: Vital signs: Vital Signs Temperature 98.4 F 10/18/20 11:53 Pulse Rate 68 10/18/20 11:53 Respiratory Rate 16 10/18/20 11:53 Blood Pressure 138/74 10/18/20 11:53 Pulse Oximetry 95 10/18/20 11:53 MDM - Fall MDM Narrative: Medical decision making narrative: Patient has acute kidney injury secondary to bladder outlet obstruction as well as multiple skin tears leg ulcer on the left. Organ to go ahead and admitted for the acute kidney injury IV fluids Ribeiro is in place discussed with hospitalist orders are written Lab Data: Labs: Lab Results 10/17/20 10/17/20 10/17/20 Range/Units 13:45 13:45 13:45 WBC 7.8 (4.0-10.0) 10^3/ uL RBC 3.89 L (4.1-5.3) 10^6/u L Hgb 11.9 (11.7-16.6) g/dL Hct 36.3 L (42.0-52.0) % MCV 93.3 (80-94) fL MCH 30.6 (28.0-34.0) pg MCHC 32.8 (30.0-36.0) g/dL RDW 12.0 L (12.1-15.1) % Plt Count 172 (130-400) 10^3/c mm MPV 11.6 H (7.4-10.4) fL Neut % (Auto) 77.6 % Lymph % (Auto) 11.9 % [place] % (Auto) 9.3 % Eos % (Auto) 0.4 % Baso % (Auto) 0.5 % Neut # (Auto) 6.09 (1.8-7.7) 10^3/u L Lymph # (Auto) 0.9 (0.8-4.8) 10^3/u L [place] # (Auto) 0.7 (0.2-0.9) 10^3/u L Eos # (Auto) 0.0 (0.0-0.8) 10^3/u L Baso # (Auto) 0.0 (0.0-0.1) 10^3/u L Nucleated RBC % (a uto) 0 % Nucleated RBCs # 0.0 /100WBC Sodium 138 (136-145) mmol/L Potassium 5.1 (3.5-5.1) mmol/L Chloride 101 (98-107) mmol/L Carbon Dioxide 25 (22-29) mmol/L Anion Gap 17.1 (5-19) BUN 57 H (8-23) mg/dL Creatinine 2.4 H (0.7-1.2) mg/dL GFR Calculation Not Reportable Glucose 110 (65-115) mg/dL Calculated Osmolal ity 302 H (285-295) mOsm/k g Calcium 8.8 (8.5-10.5) mg/dL Total Bilirubin 0.4 (0.15-1.2) mg/dL AST 44 H (0-40) U/L ALT 24 (0-41) U/L Alkaline Phosphata se 53 (40-130) IU/L Total Protein 6.6 (6.6-8.7) g/dL Albumin 3.5 (3.5-5.2) g/dL Globulin 3.1 (1.3-4.6) g/dL PSA Screen 0.36 (0-4) ng/mL Urine Color (Yellow) Urine Appearance (CLEAR) Urine pH (5-7) Ur Specific Gravit y (1.005-1.030) Urine Protein (Negative) Urine Glucose (UA) (Normal) Urine Ketones (Negative) Urine Blood (Negative) Urine Nitrate (Negative) Urine Bilirubin (Negative) Urine Urobilinogen (Negative) mg/dL Ur Leukocyte Geno ase (Negative) Urine RBC (0-2) /hpf Urine WBC (0-5) /hpf Ur Squamous Epith Cells (0-5) /hpf Amorphous Sediment /hpf Urine Bacteria (NONE) /hpf Hyaline Casts /lpf Coarse Granular Ca sts /lpf Urine Mucus /hpf 10/17/ Range/Units 14:55 WBC (4.0-10.0) 10^3/ uL RBC (4.1-5.3) 10^6/u L Hgb (11.7-16.6) g/dL Hct (42.0-52.0) % MCV (80-94) fL MCH (28.0-34.0) pg MCHC (30.0-36.0) g/dL RDW (12.1-15.1) % Plt Count (130-400) 10^3/c mm MPV (7.4-10.4) fL Neut % (Auto) % Lymph % (Auto) % [place] % (Auto) % Eos % (Auto) % Baso % (Auto) % Neut # (Auto) (1.8-7.7) 10^3/u L Lymph # (Auto) (0.8-4.8) 10^3/u L [place] # (Auto) (0.2-0.9) 10^3/u L Eos # (Auto) (0.0-0.8) 10^3/u L Baso # (Auto) (0.0-0.1) 10^3/u L Nucleated RBC % (a uto) % Nucleated RBCs # /100WBC Sodium (136-145) mmol/L Potassium (3.5-5.1) mmol/L Chloride (98-107) mmol/L Carbon Dioxide (22-29) mmol/L Anion Gap (5-19) BUN (8-23) mg/dL Creatinine (0.7-1.2) mg/dL GFR Calculation Glucose (65-115) mg/dL Calculated Osmolal ity (285-295) mOsm/k g Calcium (8.5-10.5) mg/dL Total Bilirubin (0.15-1.2) mg/dL AST (0-40) U/L ALT (0-41) U/L Alkaline Phosphata se (40-130) IU/L Total Protein (6.6-8.7) g/dL Albumin (3.5-5.2) g/dL Globulin (1.3-4.6) g/dL PSA Screen (0-4) ng/mL Urine Color Dark yellow (Yellow) Urine Appearance Hazy A (CLEAR) Urine pH 5 (5-7) Ur Specific Gravit y 1.030 (1.005-1.030) Urine Protein Neg (Negative) Urine Glucose (UA) Norm (Normal) Urine Ketones Negative (Negative) Urine Blood Neg (Negative) Urine Nitrate Negative (Negative) Urine Bilirubin 1+ H (Negative) Urine Urobilinogen Norm (Negative) mg/dL Ur Leukocyte Geno ase Negative (Negative) Urine RBC None (0-2) /hpf Urine WBC 5-10 H (0-5) /hpf Ur Squamous Epith Cells 0-4 H (0-5) /hpf Amorphous Sediment 1+ /hpf Urine Bacteria 1+ H (NONE) /hpf Hyaline Casts 25-40 H /lpf Coarse Granular Ca sts 5-10 H /lpf Urine Mucus 1+ /hpf Discharge Plan Discharge Patient Disposition: Placed in Observation Admit Provider: Volodymyr Manuel Clinical Impression: Acute kidney injury, Bladder outlet obstruction, Multiple skin tears, Leg ulcer, left Coding Level of Care Code ED Precision Lens Technician for g Fwd Exam Detailed
[2020-10-17 13:57] LABS: Basophils % 0.5 %; Eosinophils % 0.4 %; Hematocrit 36.3 % (42.0-52.0); Hemoglobin 11.9 g/dL (11.7-16.6); Lymphocytes # 0.9 10^3/uL (0.8-4.8); Lymphocytes % 11.9 %; Mean Corpuscular HGB Conc 32.8 g/dL (30.0-36.0); Mean Corpuscular Hemoglobin 30.6 pg (28.0-34.0); Mean Corpuscular Volume 93.3 fL (80-94); Mean Platelet Volume 11.6 fL (7.4-10.4); Monocytes # 0.7 10^3/uL (0.2-0.9); Monocytes % 9.3 %; Neutrophils # 6.09 10^3/uL (1.8-7.7); Neutrophils % 77.6 %; Nucleated Red Blood Cells % 0 %; Platelet Count 172 10^3/cmm (130-400); Red Blood Count 3.89 10^6/uL (4.1-5.3); White Blood Count 7.8 10^3/uL (4.0-10.0)
[2020-10-17 14:49] LABS: Alanine Aminotransferase 24 U/L (0-41); Albumin Level 3.5 g/dL (3.5-5.2); Alkaline Phosphatase 53 IU/L (40-130); Anion Gap 17.1 (5-19); Aspartate Amino Transferase 44 U/L (0-40); Blood Urea Nitrogen 57 mg/dL (8-23); Calcium 8.8 mg/dL (8.5-10.5); Carbon Dioxide 25 mmol/L (22-29); Chloride 101 mmol/L (98-107); Creatinine Clr Calc Pharmacy 20.4674; Globulin 3.1 g/dL (1.3-4.6); Glucose 110 mg/dL (65-115); Osmolality Calculated 302 mOsm/kg (285-295); Potassium 5.1 mmol/L (3.5-5.1); Sodium 138 mmol/L (136-145); Total Bilirubin 0.4 mg/dL (0.15-1.2); Total Protein 6.6 g/dL (6.6-8.7)
[2020-10-17 15:00] LABS: Add Urine Microscopic? YES; Bilirubin Urine 1+ (Negative); Blood Urine Neg (Negative); Glucose Urine UA Norm (Normal); Ketones Urine Negative (Negative); Leukocyte Esterase Urine Negative (Negative); Nitrate Urine Negative (Negative); Protein Urine Neg (Negative); Urine Appearance Hazy (CLEAR); Urine Color Dark Yellow (Yellow); Urobilinogen Urine Norm (Negative); pH Urine 5 (5-7)
[2020-10-17 15:07] LABS: Amorphous Sediment Urine 1+ /hpf; Bacteria Urine 1+ /hpf; Hyaline Casts Urine 25-40 /lpf; Mucus Urine 1+ /hpf; Squamous Epithelial Cell Urine 0-4 /hpf (0-5)
[2020-10-17 15:08] LABS: Add Urine Culture? No
[2020-10-17] MEDS: sodium chloride 0.9% 1,000 ML 999 ML IV (15:52)
--- NOTE | 2020-10-17 16:57 | XRR_ITS ---
PROCEDURE INFORMATION: Exam: XR Left Elbow Exam date and time: 10/17/2020 4:57 PM Age: 85 years old Clinical indication: Pain; Elbow; Left; Additional info: Pain, trauma TECHNIQUE: Imaging protocol: XR Left elbow. Views: 3 or more views. COMPARISON: No relevant prior studies available. FINDINGS: Tubes, catheters and devices: IV tubing in the antecubital fossa. Bones/joints: Mild degenerative change at the left elbow. No acute fracture. No dislocation. Normal bone mineralization. No joint effusion. Joint spaces are maintained. Soft tissues: No soft tissue swelling. No radiopaque foreign body. XR/XR elbow LT min 3V* [id number] IMPRESSION: 1. No acute fracture. Followup imaging recommended in 7-14 days if clinical concern for fracture persists. 2. Incidental/nonacute findings are listed in the report.
--- NOTE | 2020-10-17 17:27 | PC.NURSE ---
bladder scan 420ml residual. patient voided 100ml <30minutes ago
--- NOTE | 2020-10-17 17:52 | P.HP_ITS ---
Providers/Chief Complaint Admitting Physician: Volodymyr Manuel DO Primary Care Provider: SUELLEN Almanzar Chief Complaint: FREQUENT FALLS History of Present Illness David Mcclure is a 85 year old male with recent frequent falls. Has leg wounds followed by Dr. Candelaria. Has a walker and cane at home but doesn't use them. Says he has HHC at home. However, says did not have therapy regarding devices and walking. Review of Systems Const: Denies: fever(s) or chills Eyes: Denies: change in vision ENMT: Denies: throat pain or nasal congestion Card: Denies: chest pain or palpitations Resp: Denies: dyspnea or productive cough GI: Reports: other (Pt s/p colectomy with colostomy for 16 years.) : Reports: difficulty urinating, urinary hesitancy and other (already on high dose flomax) Musc: Denies: back pain or extremity pain Neuro: Denies: headache(s) or dizziness Psych: Denies: anxiety or depression Sridhar/Lymph: Denies: easy bruising or easy bleeding Medications/Allergies Home Medications Medication Instructions Recorded Confirmed Last Taken Type aspirin 81 mg tablet,delayed 81 mg PO DAILY 01/05/20 10/17/20 10/16/20 History release gabapentin 100 mg capsule 100 mg PO BID #180 cap 01/05/20 10/17/20 10/16/20 Rx morphine 30 mg capsule,extended 30 mg PO .5 TIMES DAILY PRN 01/05/20 10/17/20 10/16/20 History release 24 hr multiphase multivitamin 1 tab PO DAILY 01/05/20 10/17/20 10/16/20 History vitamin B complex 1 tab PO DAILY 01/05/20 10/17/20 10/16/20 History carvedilol 6.25 mg tablet 6.25 mg PO .2 TABS AM, 1 TAB PM 04/13/20 10/17/20 10/16/20 Rx #90 tab simvastatin 10 mg tablet 10 mg PO DAILY #90 tab 08/17/20 10/17/20 10/16/20 Rx levofloxacin 500 mg tablet 500 mg PO DAILY #7 tab 10/12/20 10/17/20 10/16/20 Rx albuterol sulfate [Ventolin HFA] 2 puff INHALATION QID PRN 10/17/20 10/17/20 Unknown History lisinopril 5 mg PO DAILY 10/17/20 10/17/20 10/16/20 History meloxicam 7.5 mg PO DAILY 10/17/20 10/17/20 10/16/20 History tamsulosin [Flomax] 0.8 mg PO DAILY 10/17/20 10/17/20 10/16/20 History Allergies Allergy/AdvReac Type Severity Reaction Status Date / Time Penicillins Allergy Unknown Verified 10/17/20 14:13 PFSH Acute PFSH: Medical History Colon cancer Colostomy in place Coronary artery disease Coronary atherosclerosis of bypass graft Essential hypertension PAD (peripheral artery disease) Venous insufficiency Surgical History History of colon resection S/P CABG (coronary artery bypass graft) (~2007) Family History Sister Diabetes Social History Smoking and tobacco status: current every day smoker cigarettes Packs smoked per day: 1 Alcohol intake: never Vitals/I&O/Wt Last Vital Signs Temp 97 F L 10/17/20 12:55 Pulse 120 H 10/17/20 17:30 Resp 18 10/17/20 17:30 BP 163/95 10/17/20 17:30 Pulse Ox 95 10/17/20 17:30 Weight last 48 hrs Weight 59.421 kg Physical Exam Const: COMMON NORMALS: no acute distress, patient oriented x3 and alert GENERAL APPEARANCE: cooperative and comfortable NUTRITIONAL APPEARANCE: thin HENMT: COMMON NORMALS: normocephalic and atraumatic FACE & SINUS: normal facial exam NOSE: Normal external nose present GENERAL EAR: hearing grossly impaired MOUTH: Normal oral and palatal mucosa present Eye: PUPIL: Yes Equal, round and reactive pupils present Neck/C-Spine: COMMON NORMALS: no lymphadenopathy, no JVD and Thyroid normal Lymph: LYMPHATIC: no lymphadenopathy noted Chest: COMMONS NORMALS: normal inspection of the chest Resp: COMMON NORMALS: normal respiratory effort, No use of accessory muscles and clear to auscultation bilaterally Cardio: COMMON NORMALS: no JVD, regular rate, regular rhythm, S1 normal heart sound present and S2 normal heart sound present RHYTHM: other (periods of tachycardia) GI: COMMON NORMALS: non-tender and no masses INSPECTION: Yes normal to inspection (except for colostomy) AUSCULTATION: Yes normoactive bowel sounds PALPATION: Yes Soft to palpation : COMMON NORMALS: Yes no CVA tenderness, Yes normal external exam and Yes no scrotal swelling Back/Pelvis: COMMON NORMALS: thoracic and lumbar spine normal to inspection and no thoracic nor lumbar tenderness Extremity: GENERAL: Yes other findings (see skin) Neuro: SENSORIUM/ORIENTATION: Yes alert, Yes oriented to person, Yes oriented to place and Yes oriented to time Psych: COMMON NORMALS: denies homicidal ideation and denies suicidal ideation Skin: WOUNDS: Yes wounds noted (LLE opening, skin sloughed off leaving erythematous area circumfirential) Sepsis: Is patient septic: No Focused sepsis exam performed: No Data : 10/17/20 13:45 10/17/20 13:45 A&P Assessment and plan (1) Acute kidney injury: Fluids-NS at 250 cc/hr Place walker for accurate I/O's and document UA with c&S if warrented. stop jaquelin-i was on levaquin. Will continue if for UTI check PSA. may need urology consult. Status: Acute (2) Bladder outlet obstruction: walker, flomax possible addition of proscar of other agent Status: Acute (3) Multiple skin tears: cont wound managment as per Dr. Candelaria Status: Acute (4) Leg ulcer, left: versus skin tear Status: Acute (5) Essential hypertension: hold jaquelin-i due to ARF continue coreg Status: Acute (6) Colostomy in place: for 16 years. Status: Acute (7) Coronary artery disease: s/p CABG Status: Acute Attestations Medical Necessity Statement*: Pt placed in observation status at this time Coding Level of Care Code Acute Beater Out Leveling Machine for Roby Salmon Diagnoses Acute kidney injury N17.9 Bladder outlet obstruction N32.0 Multiple skin tears T14.8XXA Leg ulcer, left L97.929 Essential hypertension I10 Colostomy [address] Z93.3 Coronary artery disease I25.10
--- NOTE | 2020-10-17 17:56 | PC.RESP ---
Smoking Cessation information sent to patient.
[2020-10-17] MEDS: tetanus-diphtheria tox (adult) 0.5 mL SDV IM (18:12)
[2020-10-17] MEDS: sodium chloride 0.9% 1,000 ML 250 ML IV ×2 (18:12→22:56)
[2020-10-17] MEDS: gabapentin 100 mg Capsule PO (18:16)
[2020-10-17 22:09] LABS: Prostate Specific Antigen Scr 0.36 ng/mL (0-4)
[2020-10-17] MEDS: carvedilol 6.25 mg Tablet PO (22:56)
[2020-10-17] MEDS: enoxaparin 40 mg/0.4 mL Syringe SUBCUT (22:57)
[2020-10-18] VITALS (12 sets, daily range): BP systolic 127–162; BP diastolic 51–74; PULSE 68–101; RESP 14–20; TEMP 36.6–37.5; O2SAT 88–100
[2020-10-18] MEDS: sodium chloride 0.9% 1,000 ML 250 ML IV ×2 (03:08→06:43)
[2020-10-18 06:02] LABS: Basophils % 0.4 %; Eosinophils % 0.3 %; Hematocrit 34.5 % (42.0-52.0); Lymphocytes # 0.5 10^3/uL (0.8-4.8); Lymphocytes % 6.1 %; Mean Corpuscular HGB Conc 31.9 g/dL (30.0-36.0); Mean Corpuscular Hemoglobin 30.6 pg (28.0-34.0); Mean Corpuscular Volume 95.8 fL (80-94); Mean Platelet Volume 11.8 fL (7.4-10.4); Monocytes # 0.9 10^3/uL (0.2-0.9); Monocytes % 11.6 %; Neutrophils % 81.1 %; Nucleated Red Blood Cells % 0 %; Platelet Count 153 10^3/cmm (130-400); White Blood Count 7.7 10^3/uL (4.0-10.0)
[2020-10-18 06:22] LABS: Anion Gap 15.4 (5-19); Blood Urea Nitrogen 42 mg/dL (8-23); Calcium 7.3 mg/dL (8.5-10.5); Carbon Dioxide 21 mmol/L (22-29); Chloride 109 mmol/L (98-107); Glucose 86 mg/dL (65-115); Osmolality Calculated 302 mOsm/kg (285-295); Potassium 4.4 mmol/L (3.5-5.1); Sodium 141 mmol/L (136-145)
[2020-10-18] MEDS: levoFLOXacin 500 mg Tablet PO (08:49)
[2020-10-18] MEDS: multivitamin therapeutic Tablet 1 TAB PO (08:50)
[2020-10-18] MEDS: tamsulosin 0.4 mg Capsule 0.8 MG PO (08:50)
[2020-10-18] MEDS: gabapentin 100 mg Capsule PO ×2 (08:50→18:35)
[2020-10-18] MEDS: morphine ER (12 HR) 30 mg tablet PO (08:50)
[2020-10-18] MEDS: carvedilol 12.5 mg Tablet PO (08:50)
--- NOTE | 2020-10-18 10:42 | PC.CHAP ---
Pastoral Care Encounter/Spiritual Assessment Type of Contact [] Declined poultry farmworker visit [] Patient/Family/Request visit [] Outpatient visit [] Follow-up visit [] Physician referral [] Code/Alert [x] Routine visit [] Staff referral [] Actively dying [] Patient sleeping [] Family support [] [] Out of room [] Palliative care [] [] Receiving care in room [] Pre-surgical visit [] Trauma [] Long length of stay [] ICU visit [] Other: Relational/Emotional Strength [] Patient feels connected with others/family/visitors/staff [] Distress [] Loneliness/isolation [] Abandonment Spirituality of Patient [] Person of [place] [] Attends Scientologist of their [place] [] Believes in Prayer [] Reads Bible or Quaker materials [] There are Spiritual issues to be addressed Pediatric Physician Interventions [] Prayer [] Active listening [] Non-anxious presence [] Spiritual/emotional support [] Crisis/trauma care [] Spiritual counseling [] Bereavement support [] Provided bereavement packet [] Provided Bible/devotional materials [] Provided toy/stuffed animal, coloring book to patient or family member [] Provided Communion [] Anointing/Moro [] Salvation [] Completed spiritual assessment [] Other: Impact on Illness or Injury [] Angry [] Fearful [] Anxious [] Often cries [] Exhaustion [] Unable to work [] Unable to attend hindu [] Unable to walk/stand [] Unable to read [] Unable to drive [] Unable to eat/drink [] Unable to sleep [] Unable to be with family [] Patient intubated [] Other: Summary gone home Time spent with patient
--- NOTE | 2020-10-18 17:28 | P.PN_ITS ---
Subjective Subjective: Interval history: I initially saw patient this morning. He was feeling much better except he was complaining of back pain. He states that sitting upright in bed was the most benefit. We discussed again discharge planning to have his schsomfosj-sz-[id number] stay with him. He again rambled about this but then was willing to accept or help. We plan to discharge later in the day wants the once Ema came. Was asked to see patient again this afternoon received MS Contin 30 mg. Reportedly he takes short acting morphine 5 times a day. I think with the formulary substitution it got changed to the MS Contin. Unfortunately he has been asleep all day with Ema and she is anxious and clearly cannot take care of him since he is not awake. He will awaken somewhat during my reevaluation. He is very lethargic very hard of hearing he confirms that he takes morphine for his back pain it appears that Dr. Gray from oncology prescribes it. Vitals/I&O/Wt Last Vital Signs Temp 99.5 F 10/18/20 16:00 Pulse 71 10/18/20 16:00 Resp 18 10/18/20 16:00 BP 130/55 10/18/20 16:00 Pulse Ox 97 10/18/20 16:00 10/18/20 10/18/20 10/18/20 06:59 14:59 22:59 Intake Total 2895.833 / 3895.833 240 / 240 Output Total 225 / 950 Balance 2670.833 / 2945.833 240 / 240 Weight last 48 hrs Weight 59.421 kg Physical Exam Narrative: EXAM NARRATIVE: Examination performed this morning around 9 AM shows him alert and oriented to self and place. He is in no acute distress Heart regular rhythm and regular rate. No tachycardia today. No obvious murm ur. Lungs normal respiratory effort clear to auscultation bilaterally Abdomen flat soft nontender nondistended normal active bowel sounds Extremities no clubbing cyanosis or edema. The left lower extremity has a circumferential skin tear with bloody exudate. Neuro patient is alert and oriented to self and place. He is very hard of hearing but also seems confused. Urinary Catheter Management^: Ribeiro: Cath Placed During This Visit: yes Reason for Continuing Indwelling Catheter: Accurate Measurement of Urinary Output in Critically Ill Patients Urinary Catheter Date of Insertion: 10/17/20 Urinary Catheter Time of Insertion: 18:06 Data : 10/18/20 04:59 10/18/20 04:59 A&P Assessment and plan (1) Acute kidney injury: Markedly improved with fluid resuscitation. Had stopped at this morning with expectation of discharge. However, now will restart normal saline at 150 cc an hour until tomorrow. Note patient's MELISSA inhibitor was discontinued. He remains on Levaquin for possible UTI. urinalysis was negative there. Status: Acute (2) Bladder outlet obstruction: Maintain Ribeiro catheter throughout night. Status: Acute (3) Multiple skin tears: Ideally would place nixall on this wound however not available at this institution. Will use Neosporin and cover with coated guaze Status: Acute (4) Essential hypertension: Holding MELISSA inhibitor at this time. Continue Coreg Status: Acute (5) Colostomy in place: Status: Acute (6) Colon cancer: 16 years ago[address] with [address] Gray. Perhaps Dr. Gray has been prescribing the morphine? Status: Acute (7) Coronary artery disease: CABG in 2007. Status: Acute Attestations Medical Necessity Statement*: Patient in observation we will keep another night. Coding Level of Care Code Acute Director Of Maternity Services for razia Fwd Diagnoses Acute kidney injury N17.9 Bladder outlet obstruction N32.0 Multiple skin tears T14.8XXA Essential hypertension I10 Colostomy in [address] Z93.3 Colon cancer C18.9 Coronary artery disease I25.10
[2020-10-18] MEDS: sodium chloride 0.9% 1,000 ML 150 ML IV (18:35)
[2020-10-18] MEDS: enoxaparin 40 mg/0.4 mL Syringe SUBCUT (18:35)
--- NOTE | 2020-10-18 18:55 | PC.NURSE ---
shift summary pt at beginning of shift complained of pain this nurse gave him his PRN morphine that he states he takes at home and pt has been sleeping since then off and on most of the day. ex daughter in law stated he is not normally this out of it. family is getting the home ready for his discharge for tomorrow where Ema will be staying with him. Pt would is open to air, and no other complaints of pain at this time.
[2020-10-19] VITALS (9 sets, daily range): BP systolic 136–172; BP diastolic 65–74; PULSE 62–79; RESP 15–17; TEMP 36.6–37.4; O2SAT 89–99
[2020-10-19] MEDS: sodium chloride 0.9% 1,000 ML 150 ML IV (04:09)
--- NOTE | 2020-10-19 06:25 | PC.NURSE ---
shift Summary Patient has slept most of the night. Has had no complaints of pain. Pt has been alert and oriented during this shift. Able to answer questions appropriately.
[2020-10-19 06:51] LABS: Anion Gap 12.4 (5-19); Blood Urea Nitrogen 30 mg/dL (8-23); Calcium 7.8 mg/dL (8.5-10.5); Carbon Dioxide 23 mmol/L (22-29); Chloride 108 mmol/L (98-107); Glucose 124 mg/dL (65-115); Osmolality Calculated 296 mOsm/kg (285-295); Potassium 4.4 mmol/L (3.5-5.1); Sodium 139 mmol/L (136-145)
[2020-10-19] MEDS: multivitamin therapeutic Tablet 1 TAB PO (07:31)
[2020-10-19] MEDS: tamsulosin 0.4 mg Capsule 0.8 MG PO (07:31)
[2020-10-19] MEDS: carvedilol 12.5 mg Tablet PO (07:31)
[2020-10-19] MEDS: levoFLOXacin 500 mg Tablet PO (07:31)
[2020-10-19] MEDS: gabapentin 100 mg Capsule PO (07:32)
[2020-10-19] MEDS: acetaminophen 325 mg Tablet 650 MG PO (08:56)
--- NOTE | 2020-10-19 08:58 | PC.NURSE ---
Blood pressure 159/70 reported to primary nurse
--- NOTE | 2020-10-19 11:38 | PC.NURSE ---
Colostomy Bag Moderate sized stool emptied from colostomy
--- NOTE | 2020-10-19 12:30 | PC.NURSE ---
IV removed at this time. Patient tolerated well. Reviewed patient discharge with patient and daughter in law at bedside. Patient and daughter in law verbalized understanding of discharge instructions including follow up appointments and to stop lisinopril and meloxicam. Patient is A&Ox3. Respirations even and non-labored on room air. Patient wheel chaired to private car.
--- NOTE | 2020-10-20 18:35 | PM.DCS ---
Discharge Providers Date of Admission: 10/17/20 16:23 Date of Discharge: October 20, 2020 Attending Provider at Admission: Volodymyr Manuel DO Attending Provider at Discharge: Volodymyr Manuel DO Primary Care Provider: SUELLEN Almanzar Diagnoses at Discharge Discharge Diagnosis (1) Acute kidney injury: Status: Acute (2) Bladder outlet obstruction: Status: Acute (3) Multiple skin tears: Status: Acute (4) Essential hypertension: Status: Acute (5) Colostomy in place: Status: Acute (6) Colon cancer: Status: Acute (7) Coronary artery disease: Status: Acute Reason for Visit Reason for Visit: FREQUENT FALLS Hospital Course Hospital Course Patient came to hospital after multiple falls he was found to have acute kidney injury most likely due to dehydration. A Ribeiro was placed for accurate I's and O's fluids were set at 250 cc an hour his MELISSA inhibitor was stopped and he was placed on Levaquin The following day he was markedly improved and his kidney function improved. Plans were made to discharge home with home health care with increased services. However he eventually asked for pain medication and the order was for long-acting morphine. Apparently he takes short acting morphine at home with medication reconciliation there was an error. He reacted with much lethargy and in the early evening it was decided we would keep him another night and keep him hydrated. The following day his creatinine had returned to normal his BUN was 30. We wrote orders for increased care from home health care and his [id number]-fq-jrs Ema is willing to stay with the patient for a few weeks. During that time plans will be made to get the patient more help at home or transition to a different living environment. Physical Exam Narrative: EXAM NARRATIVE: Gen: alert and oriented to self and place. He is in no acute distress Heart regular rhythm and regular rate. No tachycardia today. No obvious murmur. Lungs normal respiratory effort clear to auscultation bilaterally Abdomen flat soft nontender nondistended normal active bowel sounds Extremities no clubbing cyanosis or edema. The left lower extremity has a circumferential skin tear Neuro patient is alert and oriented to self and place. He is very hard of hearing. Urinary Catheter Management^: Ribeiro: Cath Placed During This Visit: yes, but has since been removed by the nurse Reason for Continuing Indwelling Catheter: Decision to DC Catheter Urinary Catheter Date of Insertion: 10/17/20 Urinary Catheter Time of Insertion: 18:06 Date Urinary Catheter Removed: 10/19/20 Time Urinary Catheter Discontinued: 11:30 Discharge Data Data Completed and Pending: Completed Studies During Hospitalization Category Date Time Status CT cervical spin wo con* [id number] Stat Cat Scan 10/17/20 13:[address] head wo con* 7 0450 Stat Cat Scan 10/17/20 13:19 Completed XR chest 1V devika ble [id number] Stat Exams 10/17/20 13:18 Completed XR elbow LT min 3 V* [id number] Stat Exams 10/17/20 16:57 Completed Vitals: Last Vital Signs Temp 97.8 F 10/19/20 14:25 Pulse 63 10/19/20 14:25 Resp 17 10/19/20 14:25 BP 150/65 10/19/20 14:25 Pulse Ox 92 10/19/20 14:25 Discharge Plan Discharge Patient Disposition: Home Condition: Fair Prescriptions: Continued vitamin B complex [B Complex-Vitamin B12] Tablet 1 tab PO DAILY RF: 0 aspirin [Adult Low Dose Aspirin] 81 mg tablet,delayed release (DR/EC) 81 mg PO DAILY RF: 0 multivitamin Tablet 1 tab PO DAILY RF: 0 gabapentin 100 mg capsule 100 mg PO BID Qty: 180 RF: 3 simvastatin 10 mg tablet 10 mg PO DAILY Qty: 90 RF: 3 carvedilol 6.25 mg tablet 6.25 mg PO .2 TABS AM, 1 TAB PM Qty: 90 RF: 5 levofloxacin 500 mg tablet 500 mg PO DAILY Qty: 7 RF: 0 Flomax 0.4 mg Capsule 0.8 mg PO DAILY RF: 0 Ventolin HFA 90 mcg/actuation HFA aerosol inhaler 2 puff INHALATION QID PRN (Reason: Shortness Of Breath) RF: 0 morphine 30 mg Tablet 30 mg PO .5 TIMES DAILY PRN (Reason: Pain) RF: 0 Discontinued meloxicam 7.5 mg Tablet 7.5 mg PO DAILY RF: 0 lisinopril 5 mg tablet 5 mg PO DAILY RF: 0 Discharge Orders: Discharge Order (Routine); Ordered 10/19/20 Ordered By: Vooldymyr Manuel Other Ambulatory Orders: Basic Metabolic Panel (Routine) Timeframe: 1 Week Facility: [facility] - Location: Lab - Main Lab Ordered By: Volodymyr Manuel DME: Hospital Bed (Order) Location: None Selected Ordered By: Volodymyr Manuel DME: Wheelchair (Order) Location: None Selected Ordered By: Volodymyr Manuel Referrals: [facility] [Outside] Xochitl Dao FNP [Primary Care Provider] - 10/24/20 10:15 am Patient Instructions: Acute Kidney Injury (DC), Skin Tear (GEN), Opioid Safety Discharge Attestations Time Spent in Discharge Care*: less than 30 min Specific Discharge Activities: educating patient, educating and/or supporting family/caregiver and discussing with high risk case manager/social workers/dc planners Quality Metrics Clinical Quality Measures During this hospital stay, did patient experience: None Coding Level of Care Code Acute Chg FW DC note Diagnoses Acute kidney injury N17.9 Bladder outlet obstruction N32.0 Multiple skin tears T14.8XXA Essential hypertension I10 [address] Z93.3 Colon cancer C18.9 Coronary artery disease I25.10
== END 2020-10-19 12:30 | disposition home or self-care (01) ==
LOC: ER 17:28 → MEDSURG 17:30
PROVIDERS: Admitting Provider Internal Medicine; Emergency Provider Family Medicine; PCP Nurse Practitioner; Visit Provider Internal Medicine
DX: N17.9 Acute kidney failure, unspecified (principal); N32.0 Bladder-neck obstruction; L97.929 Non-pressure chronic ulcer of unspecified part of left lower leg with unspecified severity; I10 Essential (primary) hypertension; Z93.3 Colostomy status; C18.9 Malignant neoplasm of colon, unspecified; I25.10 Atherosclerotic heart disease of native coronary artery without angina pectoris; Z95.1 Presence of aortocoronary bypass graft; F17.210 Nicotine dependence, cigarettes, uncomplicated; I87.2 Venous insufficiency (chronic) (peripheral); Z23 Encounter for immunization
CPT/HCPCS: 36415; 51702; 51798; 70450; 71045; 72125; 73080; 80048; 80053; 81001; 85025; 90471; 90714; 92523; 93005; 96360; 96361; 96372; 97161; 97167; 97530; 97535; 99285; G0103; G0378; J1650; J7030